=== PATIENT | male | born 1985 | race Caucasian/White ===

== ENCOUNTER 2024-03-28 10:12 | Emergency (ER) | payer OTHER ==
[~2024-03-28] VITALS: Ht 190.5 cm; Wt 154.7 kg
[2024-03-28] MEDS ORDERED: ALBUTEROL SULFATE 0.083% 3 ML VIAL INH ONE (11:00)
[2024-03-28] MEDS ORDERED: VENTOLIN HFA18 GM INH (13:53)
[2024-03-28 14:00] VITALS: BP 154/91
== END 2024-03-28 14:07 | disposition home or self-care (01) ==
LOC: ED 10:12
DX: R05.9 Cough, unspecified (principal); K76.0 Fatty (change of) liver, not elsewhere classified; C81.9A Hodgkin lymphoma, unspecified, in remission
CPT/HCPCS: 71045; 71260; 94640; 99285-25; Q9967